=== PATIENT | male | born 1960 | race Caucasian/White ===

== ENCOUNTER 2018-03-19 11:43 | Inpatient (IN) ==
[2018-03-19] MEDS ORDERED: HYDROmorphone PF Inj 2 MG/ML Vial IV.PUSH ONE (11:53)
--- NOTE | 2018-03-19 11:56 | ED ---
HPI General Chief Complaint: Abdominal Pain Stated Complaint: Medical Time Seen by Provider: 03/19/18 11:53 Source: patient, family and EMS Mode of arrival: EMS Limitations: no limitations History of Present Illness HPI narrative: 57-year-old male patient with history of left inguinal hernia, seen several days ago for similar symptoms, but it was reducible, states that it has been going in and out and about 40 minutes prior to arrival started having severe pain in the left inguinal area, and is not going away, currently a 10 out of 10. EMS has given the patient 6 mg of morphine without significant relief. Patient states that he does not feel like he has anything to throw up, but has not vomited. He denies other issues. Related Data Home Medications Medication Instructions Recorded Confirmed No Known Home Medications 03/14/18 03/14/18 Previous Rx's Medication Instructions Recorded hydrocodone-acetaminophen 1 tab PO Q6H PRN #14 tab 03/15/18 ondansetron HCl [Zofran] 4 mg PO Q8H 5 Days #15 tab 03/15/18 Allergies Allergy/AdvReac Type Severity Reaction Status Date / Time amoxicillin Allergy Severe Rash, Verified 03/14/18 21:31 throat tightness tetanus toxoid, adsorbed Allergy Severe Chest Pain Verified 03/14/18 21:31 nitroglycerin AdvReac Severe Bradycardia Verified 03/14/18 21:31 Review of Systems ROS: all other systems reviewed are negative PMFSH History History Provided By: Patient Medical History Medical History Inguinal hernia (Acute) History of ankle fracture (Acute) Hx of gastroesophageal reflux (GERD) (Acute) Hx of renal failure (Acute) Surgical History Surgical History Hx of appendectomy (Acute) Hx of cholecystectomy (Acute) Social History Social History Substance History: Active Abuse Second Hand Smoke Exposure: No Smoking Status: Never smoker How Often Do You Have a Drink Containing Alcohol: 2 to 4 times a month Recent Travel in [facility] within the Last 8 Weeks: No Recent Out of Country Travel within the Last 8 Weeks: No Exam Narrative Exam Narrative: GENERAL: Well-developed middle-age male patient currently in moderate distress. Awake and oriented 3. SKIN: Focused skin assessment warm/dry. HEAD: Atraumatic. Normocephalic. EYES: Pupils equal and round. No scleral icterus. No injection or drainage. ENT: No nasal bleeding or discharge. Mucous membranes pink and moist. NECK: Trachea midline. No JVD. CARDIOVASCULAR: Regular rate and rhythm. No murmur appreciated. RESPIRATORY: No accessory muscle use. Clear to auscultation. Breath sounds equal bilaterally. GASTROINTESTINAL: Abdomen soft, non-tender, nondistended. Hepatic and splenic margins not palpable. There is a palpable left inguinal hernia that is fairly tender to palpation, ice back in place. MUSCULOSKELETAL: No obvious deformities. No clubbing. No cyanosis. No edema. NEUROLOGICAL: Awake and alert. No obvious cranial nerve deficits. Motor grossly within normal limits. Normal speech. PSYCHIATRIC: Appropriate mood and affect; insight and judgment normal. Course Initial Documented Vital Signs Pulse Rate 95 H 03/19/18 11:53 Respiratory Rate 18 03/19/18 11:53 Blood Pressure 149/98 H 03/19/18 11:53 Pulse Oximetry 95 03/19/18 11:53 Last Documented Vital Signs Pulse Rate 111 H 03/19/18 11:58 Respiratory Rate 18 03/19/18 11:58 Blood Pressure 149/98 H 03/19/18 11:58 Pulse Oximetry 95 03/19/18 11:58 Medical Decision Making MDM Narrative Medical decision making narrative: I was not able to reduce the left inguinal hernia in the ER, and I have discussed the case with Dr. Chanel who wanted lab work and CAT scan to be done, wants me to admit the patient medically. CAT scan is showing incarceration of the left inguinal hernia and the case was discussed with Dr. Chanel who is planning to take him to the OR. Case was then discussed with Dr. Cota for admission. Medical Screen Exam Complete: Yes Emergency Medical Condition: Yes Differential Diagnosis Differential Diagnosis: Left inguinal hernia: Reducible versus incarcerated Lab Data Lab results reviewed: Yes I reviewed the patient's lab results. Result diagrams: 03/19/18 12:58 03/19/18 12:58 Lab Results 03/19/18 03/19/18 Range/Units 12:58 12:58 WBC 9.2 (4.0-11.0) th/mm3 RBC 5.26 (4.50-5.90) mil/mm3 Hgb 16.6 (13.0-17.0) gm/dL Hct 47.6 (39.0-51.0) % MCV 90.4 (80.0-100.0) fL MCH 31.5 (27.0-34.0) pg MCHC 34.9 (32.0-36.0) % RDW 13.5 (11.6-17.2) % Plt Count 325 (150-450) th/mm3 MPV 8.6 (7.0-11.0) fL Neut % (Auto) 71.8 H (16.0-70.0) % Lymph % (Auto) 15.3 (9.0-44.0) % [place] % (Auto) 10.3 H (0.0-8.0) % Eos % (Auto) 1.2 (0.0-4.0) % Baso % (Auto) 1.4 (0.0-2.0) % Neut # (Auto) 6.6 (1.8-7.7) th/mm3 Lymph # (Auto) 1.4 (1.0-4.8) th/mm3 [place] # (Auto) 1.0 H (0.0-0.9) th/mm3 Eos # (Auto) 0.1 (0.0-0.4) th/mm3 Baso # (Auto) 0.1 (0.0-0.2) th/mm3 WBC Differential . Differential Comment Auto diff final Sodium 141 (136-145) meq/L Potassium 4.0 (3.5-5.1) meq/L Chloride 107 (98-107) meq/L Carbon Dioxide 25.6 (21.0-32.0) meq/L Anion Gap 8 (5-15) meq/L BUN 14 (7-18) mg/dL Creatinine 1.44 H (0.60-1.30) mg/dL Estimated GFR 50 L (>89) mL/min Random Glucose 121 H (74-106) mg/dL Calcium 8.3 L (8.5-10.1) mg/dL Total Bilirubin 0.7 (0.2-1.0) mg/dL AST 29 (15-37) U/L ALT 55 (12-78) U/L Alkaline Phosphatase 63 (45-117) U/L Total Protein 7.4 (6.4-8.2) g/dL Albumin 3.9 (3.4-5.0) g/dL Imaging Data Attestation: I personally reviewed and interpreted this imaging study as follows : Radiologist's impression: Abdomen/Pelvis CT 03/19/18 12:40 CONCLUSION: 1. Probable incarcerated left inguinal hernia. Correlation suggested. 2. Moderate fatty replacement to the liver. Discharge Plan Discharge Disposition Patient Disposition: 30 Still Patient Discharge Condition Condition: Stable Discharge Details Anticipated Discharge Date: 03/19/18 Diagnosis: Incarcerated hernia Physicians Team ED Provider: Junito Mccullough Primary Care Provider: Primary Care Jasmyne Luke Rxs /Orders / Referrals /Forms Prescriptions: No Action No Known Home Medications RF: 0 hydrocodone-acetaminophen 5-300 mg tablet 1 tab PO Q6H PRN (Reason: pain) Qty: 14 RF: 0 ondansetron HCl [Zofran] 4 mg tablet 4 mg PO Q8H 5 Days Qty: 15 RF: 0 Discharge Instructions Patient Printed Instructions: Inguinal Hernia Repair (DC) Discharge Interventions Interventions: Vital Signs Last Done: 03/19/18 11:58 Status ED Status: With Doctor
[2018-03-19] MEDS ORDERED: Sod Chloride 0.9% Inj 1,000 ML IV.SIG SCH (13:00)
[2018-03-19 13:36] LABS: Baso # (Auto) 0.1 th/mm3 (0.0-0.2); Baso % (Auto) 1.4 % (0.0-2.0); Eos # (Auto) 0.1 th/mm3 (0.0-0.4); Eos % (Auto) 1.2 % (0.0-4.0); Hematocrit 47.6 % (39.0-51.0); Hemoglobin 16.6 gm/dL (13.0-17.0); Lymph # (Auto) 1.4 th/mm3 (1.0-4.8); Lymph % (Auto) 15.3 % (9.0-44.0); Mean Corpuscular HGB Conc 34.9 % (32.0-36.0); Mean Corpuscular Hemoglobin 31.5 pg (27.0-34.0); Mean Corpuscular Volume 90.4 fL (80.0-100.0); Mean Platelet Volume 8.6 fL (7.0-11.0); Mono % (Auto) 10.3 % (0.0-8.0); Neut # (Auto) 6.6 th/mm3 (1.8-7.7); Neut % (Auto) 71.8 % (16.0-70.0); Platelet Count 325 th/mm3 (150-450); Red Blood Count 5.26 mil/mm3 (4.50-5.90); Red Cell Distribution Width 13.5 % (11.6-17.2); White Blood Count 9.2 th/mm3 (4.0-11.0)
[2018-03-19 13:52] LABS: Alanine Aminotransferase 55 U/L (12-78); Albumin 3.9 g/dL (3.4-5.0); Anion Gap 8 meq/L (5-15); Aspartate Aminotransferase 29 U/L (15-37); Blood Urea Nitrogen 14 mg/dL (7-18); Calcium 8.3 mg/dL (8.5-10.1); Carbon Dioxide 25.6 meq/L (21.0-32.0); Chloride 107 meq/L (98-107); Glomerular Filtration Rate 50 mL/min (>89); Glucose,Random 121 mg/dL (74-106); Sodium 141 meq/L (136-145)
[2018-03-19 13:55] LABS: Alkaline Phosphatase 63 U/L (45-117); Total Protein 7.4 g/dL (6.4-8.2)
--- NOTE | 2018-03-19 15:02 | CT ---
EXAM DATE: 03/19/2018 2:53 PM EDT AGE/SEX: 57 years / Male INDICATIONS: Left lower abdomen pain for one week. CLINICAL DATA: This is the patient's initial encounter. Patient reports that signs and symptoms have been present for 1 week and indicates a pain score of 8/10. MEDICAL/SURGICAL HISTORY: Gastroesophageal reflux disease. inguinal hernia Appendectomy. Chol ecystectomy. ORAL CONTRAST: No oral contrast ingested. RADIATION DOSE: 7.6 CTDI (mGy) COMPARISON: No prior exams available for comparison. TECHNIQUE: Multiple contiguous axial images were obtained through the abdomen and pelvis following b olus infusion of 90 ml Omnipaque 350 (iohexol) nonionic water-soluble contrast as a single exam dos e. No oral contrast ingested. Using automated exposure control and adjustment of the mA and/or kV ac cording to patient size, radiation dose was kept as low as reasonably achievable to obtain optimal di agnostic quality images. DICOM format image data is available electronically for review and comparis on. FINDINGS: Lower Lungs: The visualized lower lungs are clear. Liver: Mild fatty replacement to the liver. Spleen: Homogeneous density without enlargement. Pancreas: Unremarkable without mass or calcification. Kidneys: Normal in size and shape. No evidence of mass or hydronephrosis. Adrenal Glands: Unremarkable. Aorta: The aorta and proximal iliac vessels are grossly unremarkable without aneurysmal dilation. Bowel/Mesentery: There are multiple diverticuli in the sigmoid colon with some bowel wall thickening without inflammatory changes to suggest diverticulitis. There is a left inguinal hernia containing b owel with some induration suggesting incarceration. Abdominal Wall: Left inguinal hernia Retroperitoneum: No evidence of adenopathy in the retrocrural, para-aortic, or deep pelvic regions. Bladder: Contours are smooth. Reproductive Organs: No abnormal masses or calcifications seen. Inguinal: The inguinal region is unremarkable without evidence of adenopathy. Bony Structures: Unremarkable. CONCLUSION: 1. Probable incarcerated left inguinal hernia. Correlation suggested. 2. Moderate fatty replacement to the liver. Electronically signed by: Trace Forbes MD 03/19/2018 3:01 PM EDT
[2018-03-19] MEDS ORDERED: Bisacodyl 10 MG Supp RECTAL PRN (15:58)
[2018-03-19] MEDS ORDERED: Acetaminophen 325 MG Tablet PO PRN (15:58)
[2018-03-19] MEDS ORDERED: Morphine Inj 4 MG/ML Vial IV.PUSH PRN ×2 (16:06)
[2018-03-19] MEDS ORDERED: Naloxone Inj 0.4 MG/ML Vial IV.PUSH PRN (16:06)
[2018-03-19] MEDS ORDERED: Morphine Sulfate Inj 2 MG/ML Vial IV.PUSH PRN (16:06)
[2018-03-19] MEDS: Sod Chloride 0.9% Inj 1,000 ML IV.CONT SCH (16:08)
--- NOTE | 2018-03-19 16:27 | XR ---
EXAM DATE: 03/19/2018 4:23 PM EDT AGE/SEX: 57 years / Male INDICATIONS: Cough. CLINICAL DATA: This is the patient's initial encounter. Patient reports that signs and symptoms have been present for 1 day and indicates a pain score of 0/10. MEDICAL/SURGICAL HISTORY: None. None. COMPARISON: [facility] [place], CHEST SINGLE AP, 04/19/2016. . FINDINGS: A single AP view of the chest demonstrates the lungs to be symmetrically aerated without evidence of mass, infiltrate or effusion. The cardiomediastinal contours are unremarkable. Osseous structures a re intact. CONCLUSION: Negative for acute process Electronically signed by: Trace Forbes MD 03/19/2018 4:26 PM EDT
[2018-03-19 17:16] LABS: Bilirubin,Urine Negative (Negative); Clarity,Urine Clear (Clear); Color,Urine Yellow (Yellw/Straw); Glucose,Urine (UA) Negative (Negative); Leukocyte Esterase,Urine Negative (Negative); Mucus,Urine Few /lpf (Occasional); Nitrite,Urine Negative (Negative); Specific Gravity,Urine 1.046 (1.002-1.035)
[2018-03-19] MEDS ORDERED: Famotidine PF Inj 20 MG/2 ML Vial ONE (18:00)
[2018-03-19] MEDS ORDERED: Esmolol Bolus Inj 100 MG/10 ML Vial IV.PUSH ONE (18:09)
[2018-03-19] MEDS ORDERED: Neostigmine Inj 5 MG/5 ML Syringe IV.PUSH ONE (18:09)
[2018-03-19] MEDS ORDERED: Glycopyrrolate Inj 1 MG/5 ML Syringe IV.PUSH ONE (18:09)
[2018-03-19] MEDS ORDERED: Metoprolol Inj 5 MG/5 ML Vial IV.PUSH ONE (18:09)
[2018-03-19] MEDS ORDERED: Lidocaine PF 1% Inj 5 ML Syringe INFILTRATN ONE (18:09)
[2018-03-19] MEDS ORDERED: Labetalol HCl Inj 100 MG/20 ML Vial IV.CONT ONE (18:09)
[2018-03-19] MEDS ORDERED: Succinylcholine Inj 100 MG/5 ML Syringe IV.PUSH ONE (18:09)
[2018-03-19] MEDS ORDERED: Bupivacaine/Epinephrine Inj 0.25% 50 ML Vial ONE (18:18)
--- NOTE | 2018-03-19 18:30 | P.OP ---
- Preoperative Diagnosis (1) Incarcerated hernia - Postoperative Diagnosis (1) Incarcerated hernia Date of procedure: 03/19/18 Procedure: open l inguinal hernia repair Anesthesia: GETA Surgeon: Kanu Chanel MD Pathology: none sent Operation and Findings: incarcerated left hernia inguinal
[2018-03-19] MEDS ORDERED: fentaNYL Citrate Inj 100 MCG/2 ML Ampul ONE (19:14)
[2018-03-19] MEDS ORDERED: *Meperidine Inj 25 MG/ML Vial PERIprocedural Use ONLY ONE (19:56)
--- NOTE | 2018-03-19 21:35 | P.HPIM ---
History of Present Illness Primary Care Physician: No Primary Care Physician History of Present Illness: 57 y/o male with a history of ckd presented to the ED with complaints of severe abdominal pain. Patient states prior to coming in he had severe abdominal pain, 10/10, constant with no radiation or associated symptoms. On arrival patient was found to have an incarcerated inguinal hernia and was taken to OR. Patient was seen s/p hernia repair. He currently denies any pain. He states he will try eating in the morning and take liquids tonight. Denies any chest pain, sob, fever or chills. Inpatient Certification: I certify that the inpatient services were ordered in accordance with Medicare regulations governing the order. This includes certification that hospital inpatient services are reasonable and necessary and in the case of services not specified as inpatient-only under 42 CFR 419.22(n), that they are appropriately provided as inpatient services in accordance to with the 2-midnight benchmark under 43 CFR 412.3(e) Estimated Total Length of Stay (Days): 2 Plans for Post Hospital Care: Not yet determined Review of Systems All other systems reviewed negative except as stated in HPI [facility] - History History Provided By: Patient - Medical History Medical History: Medical History (Last Reviewed 03/19/18 @ 22:59 by LESLI Tracy) CKD (chronic kidney disease) Inguinal hernia History of ankle fracture Hx of gastroesophageal reflux (GERD) - Surgical History Surgical History: Surgical History (Last Reviewed 03/19/18 @ 22:59 by LESLI Tracy) Hx of appendectomy Hx of cholecystectomy - Family History Family History: Family History (Last Reviewed 03/19/18 @ 22:59 by LESLI Tracy) Other Family history normal - Tobacco History Second Hand Smoke Exposure: No Tobacco Use In Past 30 Days: No Smoking Status: Never smoker - Alcohol History How Often Do You Have a Drink Containing Alcohol: 2 to 4 times a month - Substance Use History Substance History: Active Abuse - Substance Use Type Marijuana Status: Active Route Used: Inhalation Last Used: every so often - Travel History Recent Travel in the [place] Within the Last 8 Weeks: No Recent Travel Out of the Country Within the Last 8 Weeks: No - Immunization History Tetanus Immunization: Never Vaccinated Hx Influenza Vaccine This Season: Yes Medications and Allergies Active Medications: Active Medications Acetaminophen (Tylenol) 650 mg PO Q4H PRN PRN Reason: Temp > 100.4 Al Hydroxide/Mg Hydroxide (Milk Of Magnesia Liq) 30 ml PO Q12H PRN PRN Reason: Mild Constipation Bisacodyl (Dulcolax Supp) 10 mg RECTAL DAILY PRN PRN Reason: SEVERE CONSITIPATION Sodium Chloride (Ns Inj) 1,000 mls @ 0 mls/hr IV.SIG BOLUS SHIRLEY Sodium Chloride (Ns Inj) 1,000 mls @ 100 mls/hr IV.CONT .Q10H [facility] Last Admin: 03/19/18 16:08 Dose: 100 mls/hr Lactulose (Lactulose Liq) 30 ml PO DAILY PRN PRN Reason: SEVERE CONSITIPATION Miscellaneous Information (Mis Nursing Information) 0 each OTHER UNSCH PRN PRN Reason: SEE LABEL COMMENTS Stop: 03/20/18 19:49 Morphine Sulfate (Morphine Inj) 4 mg IV.PUSH Q3H PRN PRN Reason: PAIN 6-10;IF UNABLE TO TAKE PO Morphine Sulfate (Morphine Inj) 4 mg IV.PUSH Q3H PRN PRN Reason: BREAKTHROUGH PAIN Morphine Sulfate (Morphine Inj) 2 mg IV.PUSH Q3H PRN PRN Reason: PAIN 3-5; IF UABLE TO TAKE PO Naloxone HCl (Narcan Inj) 0.4 mg IV.PUSH UNSCH PRN PRN Reason: SEE LABEL COMMENTS Ondansetron HCl (Zofran Inj) 4 mg IV.PUSH Q6H PRN PRN Reason: NAUSEA OR VOMITING Oxycodone HCl (Roxicodone) 5 mg PO Q4H PRN PRN Reason: PAIN SCALE 3 TO 5 Oxycodone HCl (Roxicodone) 10 mg PO Q4H PRN PRN Reason: PAIN SCALE 6 TO 10 Senna/Docusate Sodium ([place]ace) 1 tab PO BID SHIRLEY Sennosides (Senokot) 17.2 mg PO Q12H PRN PRN Reason: Moderate Constipation Allergies Allergy/AdvReac Type Severity Reaction Status Date / Time amoxicillin Allergy Severe Rash, Verified 03/14/18 21:31 throat tightness tetanus toxoid, adsorbed Allergy Severe Chest Pain Verified 03/14/18 21:31 nitroglycerin AdvReac Severe Bradycardia Verified 03/14/18 21:31 Home Medications Medication Instructions Recorded Confirmed Type No Known Home Medications 03/14/18 03/14/18 History Exam Vital signs: Vital Signs 03/19/18 11:53 03/19/18 11:58 03/19/18 16:08 Temperature Pulse Rate 95 H 111 H 65 Respiratory Rate 18 18 18 Blood Pressure 149/98 H 149/98 H 169/94 H Pulse Oximetry 95 95 98 03/19/18 17:18 03/19/18 19:49 03/19/18 20:00 Temperature 97.5 F L 98.0 F 98.0 F Pulse Rate 77 86 60 Respiratory Rate 18 16 16 Blood Pressure 187/97 H 181/102 H 140/78 Pulse Oximetry 95 98 93 L 03/19/18 20:15 03/19/18 20:33 03/19/18 20:38 Temperature 98.0 F 98.0 F 98.2 F Pulse Rate 58 L 58 L 59 L Respiratory Rate 16 14 16 Blood Pressure 135/72 135/72 157/88 H Pulse Oximetry 95 98 94 L Intake & Output 03/19/18 03/19/18 03/20/18 06:59 18:59 06:59 Intake Total 1500 / 1500 Output Total / Balance 1495 / 1495 Weight 77.6 kg Intake: Anesthesia Amount 1500 / 1500 Output: Estimated Blood Loss Narrative: GENERAL: This is a well-nourished, well-developed patient, in no apparent distress. SKIN: Left groin dressing dry and intact CARDIOVASCULAR: Regular rate and rhythm without murmurs, gallops, or rubs. RESPIRATORY: Clear to auscultation. Breath sounds equal bilaterally. No wheezes , rales, or rhonchi. GASTROINTESTINAL: Abdomen soft, non-tender, nondistended. Normal active bowel sounds MUSCULOSKELETAL: Extremities without clubbing, cyanosis, or edema. NEURO: Alert & Oriented x4 to person, place, time, situation. Moves all ext x4 Results - Labs CBC & Chem 7: 03/19/18 12:58 03/19/18 12:58 Labs: Short CBC 03/19/18 Range/Units 12:58 WBC 9.2 (4.0-11.0) th/mm3 Hgb 16.6 (13.0-17.0) gm/dL Hct 47.6 (39.0-51.0) % Plt Count 325 (150-450) th/mm3 BMP 03/19/18 12:58 Sodium 141 Potassium 4.0 Chloride 107 Carbon Dioxide 25.6 BUN 14 Creatinine 1.44 H Calcium 8.3 L Liver Function 03/19/18 Range/Units 12:58 Total Bilirubin 0.7 (0.2-1.0) mg/dL AST 29 (15-37) U/L ALT 55 (12-78) U/L Alkaline Phosphatase 63 (45-117) U/L Albumin 3.9 (3.4-5.0) g/dL Urine 03/19/18 Range/Units 16:36 Urine Color Yellow (Yellw/Straw) Urine Clarity Clear (Clear) Urine pH 5.0 (5.0-8.5) Ur Specific [place] 1.046 H (1.002-1.035) Urine Protein Negative (Neg-Trace) mg/dL Urine Glucose (UA) Negative (Negative) mg/dL - Imaging Impressions Chest X-Ray 03/19/18 00:00 CONCLUSION: Negative for acute process Abdomen/Pelvis CT 03/19/18 12:40 CONCLUSION: 1. Probable incarcerated left inguinal hernia. Correlation suggested. 2. Moderate fatty replacement to the liver. Caprini VTE Risk Assessment Caprini VTE Risk Assessment: No/Low Risk (score <= 1) Caprini Risk Assessment Model: Point Value = 1 Point Value = 2 Point Value = 3 Point Value = 5 Age 41-60 Minor surgery BMI > 25 kg/m2 Swollen legs Varicose veins or History of unexplained or recurrent spontaneous Oral contraceptives or hormone replacement Sepsis (< 1 month) Serious lung disease, including pneumonia (< 1 month) Abnormal pulmonary function Acute myocardial infarction Congestive heart failure (< 1 month) History of inflammatory bowel disease Medical patient at bed rest Age 61-74 Arthroscopic surgery Major open surgery (> 45 min) Laparoscopic surgery (> 45 min) Malignancy Confined to bed (> 72 hours) Immobilizing plaster cast Central venous access Age >= 75 History of VTE Family history of VTE Factor V Leiden Prothrombin [id number] Lupus anticoagulant Anticardiolipin antibodies Elevated serum homocysteine Heparin-induced thrombocytopenia Other congenital or acquired thrombophilia Stroke (< 1 month) Elective arthroplasty Hip, pelvis, or leg fracture Acute spinal cord injury (< 1 month) Prophylaxis Regimen: Total Risk Factor Score Risk Level Prophylaxis Regimen 0-1 Low Early ambulation 2 Moderate Order ONE of the following: *Sequential Compression Device (SCD) *Heparin 5000 units SQ BID 3-4 Higher Order ONE of the following medications: *Heparin 5000 units SQ TID *Enoxaparin/Lovenox 40 mg SQ daily (WT < 150 kg, CrCl > 30 mL/min) *Enoxaparin/Lovenox 30 mg SQ daily (WT < 150 kg, CrCl > 10-29 mL/min) *Enoxaparin/Lovenox 30 mg SQ BID (WT < 150 kg, CrCl > 30 mL/min) AND/OR *Sequential Compression Device (SCD) 5 or more Highest Order ONE of the following medications: *Heparin 5000 units SQ TID (Preferred with Epidurals) *Enoxaparin/Lovenox 40 mg SQ daily (WT < 150 kg, CrCl > 30 mL/min) *Enoxaparin/Lovenox 30 mg SQ daily (WT < 150 kg, CrCl > 10-29 mL/min) *Enoxaparin/Lovenox 30 mg SQ BID (WT < 150 kg, CrCl > 30 mL/min) AND *Sequential Compression Device (SCD) Assessment and Plan - Plan 57 y/o male with a history of ckd presented to the ED with complaints of severe abdominal pain. Incarcerated hernia Abdominal CT reviewed and shows a Probable incarcerated left inguinal hernia -General surgery consulted, took patient for an open inguinal hernia repair -Pain management with IV morphine -Resume regular diet after surgery CKD, creatine 1.4, at baseline -avoid nephrotoxins -Patient should follow up out patient with nephrology -Labs in am DVT prophylaxis: SCDs Discussed Condition With: Patient and rN
[2018-03-19] MEDS: Senna/Docusate Sodium 8.6/50 MG Tablet PO SCH (21:41)
[2018-03-20] MEDS: Sod Chloride 0.9% Inj 1,000 ML IV.CONT SCH ×2 (04:36→11:56)
--- NOTE | 2018-03-20 04:56 | MP ---
cc: Kanu Chanel MD DATE OF OPERATION: 03/19/2018 PREOPERATIVE DIAGNOSIS: Incarcerated left inguinal hernia. POSTOPERATIVE DIAGNOSIS: Incarcerated left inguinal hernia. PROCEDURE PERFORMED: Open left inguinal hernia repair with mesh. SURGEON: Kanu Chanel MD CHEMICAL PLANT OPERATOR SUPERVISOR: Shayan Johnson MD ANESTHESIA: GETA. IV FLUIDS: See anesthesia sheet. ESTIMATED BLOOD LOSS: 5 mL. DRAINS: None. WOUND CLASSIFICATION: Clean. COMPLICATIONS: None. FINDINGS: Moderate-sized incarcerated indirect left inguinal hernia fully reduced. Colon viable. No evidence of compromise. INDICATIONS: The patient is a 57-year-old male who presents with acute onset of left inguinal groin pain. It has been going on for several months. He had a further workup including CT scan findings of colon incarceration and inguinal hernia. A decision for operative intervention. DETAILS OF PROCEDURE: The patient was taken to the operating suite and placed in the supine position. He was prepped and draped in the usual sterile fashion after induction of general endotracheal anesthesia. Brief timeout done stating correct patient, procedure and surgical site, and all were in agreement with this. Attention was directed to the left groin area where a local anesthetic was injected. A transverse incision was made approximately 4.5 cm. This was done with a 15 blade. Further dissection down with electric Bovie electrocautery, down through Keri's fascia, down to the external oblique. Kittner used to clear the fibers of the external oblique. A small allyson incision was made in the direction of the fibers. Metzenbaum scissors were used to expose the external ring and transect. They were done both proximally and distally. The ilioinguinal nerve was identified and protected. The cord and moderate-sized hernia were noted. The cord and hernia were mobilized together and a [place] drain placed posterior to this to mobilize the cord structures. The tubercle was also identified. This hernia was noted to be a moderate-sized indirect left inguinal hernia. The sac was mobilized from the cord structures. Vas was identified and protected. The hernia sac was opened. Evidence of colon was inside the hernia sac. This was reduced back into the abdomen. Hernia sac was ligated high and this was done with 0 Vicryl. The 3 x 6 Atrium mesh was identified and cut curvilinear to size. This was placed to recreate the inguinal floor. The inguinal floor was noted to be somewhat weak and 0 Ethibond sutures were used in interrupted fashion to place on pubic tubercle and medially conjoined tendon to affix the mesh and the mesh was also affixed laterally to the Zi's ligament and the shelving edge. The 2 leaflets that were cut to create the internal ring were also done and this was wrapped around the cord structures. The 2 leaflets crisscrossed laterally and a suture was placed to reapproximate and recreate the inguinal ring. Local anesthetic was injected. The external oblique was then closed with 3-0 Vicryl. The Keri's was closed with 3-0 Vicryl as well. Incision closed in layers. Local anesthetic injected, 4-0 Monocryl used for subcuticular suture. Sterile dressings including Steri-Strips and Mastisol were placed. The patient tolerated the procedure well. There were no intraoperative complications. All lap and instrument counts were correct at the end of the procedure. The testicle was reduced and palpated in the scrotal sac. No complications. The patient was extubated and taken stable to the PACU. MD ROBERTA Adams/chip , 09:16 PM , 09:26 PM
[2018-03-20 06:31] LABS: Baso % (Auto) 0.2 % (0.0-2.0); Hematocrit 43.2 % (39.0-51.0); Hemoglobin 14.7 gm/dL (13.0-17.0); Lymph # (Auto) 0.8 th/mm3 (1.0-4.8); Lymph % (Auto) 4.1 % (9.0-44.0); Mean Corpuscular HGB Conc 34.1 % (32.0-36.0); Mean Corpuscular Hemoglobin 30.7 pg (27.0-34.0); Mean Corpuscular Volume 89.8 fL (80.0-100.0); Mean Platelet Volume 8.4 fL (7.0-11.0); Mono # (Auto) 1.1 th/mm3 (0.0-0.9); Mono % (Auto) 5.8 % (0.0-8.0); Neut % (Auto) 89.9 % (16.0-70.0); Platelet Count 301 th/mm3 (150-450); Red Blood Count 4.81 mil/mm3 (4.50-5.90); Red Cell Distribution Width 13.8 % (11.6-17.2); White Blood Count 18.9 th/mm3 (4.0-11.0)
[2018-03-20 06:35] LABS: INR 1.1 Ratio
--- NOTE | 2018-03-20 06:47 | MB ---
cc: Kanu Chanel MD DATE: 03/19/2018 CHIEF COMPLAINT: Left inguinal hernia pain, inguinal hernia. CONSULTATION from [facility] HISTORY OF PRESENT ILLNESS: The patient is a 57-year-old male who presents with left groin pain. The patient states he has had the hernia approximately 8 months and states that the pain has been off and on. He noted last week he came in with acute onset of groin pain and was discharged from the emergency department. He returns with worsening similar complaints and noted to have incarcerated inguinal hernia with colon present. He states his pain is 10/10. He has associated nausea. Denies significant vomiting. Denies fevers or chills. He states the hernia was unable to be reduced. Attempt at reduction in the ER without success. Therefore, Surgery was consulted for further evaluation. PAST MEDICAL HISTORY: Inguinal hernia, ankle fracture, reflux, renal failure, lupus, hypertension. PAST SURGICAL HISTORY: Cholecystectomy, appendectomy, right lower extremity ORIF. ALLERGIES: AMOXICILLIN, TETANUS, NITROGLYCERIN, SLO-BID. MEDICATIONS: See EMR. SOCIAL HISTORY: Positive smoking, occasional etoh, denies ivda FAMILY HISTORY: Denies diabetes or hypertension. REVIEW OF SYSTEMS: GENERAL: Denies fevers, chills. HEENT: Denies eye pain, ear pain. NECK: Denies swelling or pain. LUNGS: Denies cough or wheeze. HEART: Denies palpitations or chest pain. ABDOMEN: Denies vomiting. Complains of nausea and groin pain, hernia. GENITOURINARY: Denies dysuria or hematuria. ENDOCRINE: Denies polyuria or polydipsia. INTEGUMENT: Denies any mass or lesions: PSYCHIATRIC: Denies any change in mood or sensorium. PHYSICAL EXAMINATION: GENERAL: The patient in no acute distress. VITAL SIGNS: Temperature 98.2, pulse 95, respirations 18, blood pressure 149/98, saturation 95%. HEENT: Pupils equal, round, reactive. NECK: Supple. Trachea midline. LUNGS: Clear to auscultation, bilateral expansion. HEART: S1, S2. Regular rhythm. ABDOMEN: Soft. GROIN: Positive palpable inguinal hernia on the left. Nonreducible, tenderness to palpation. No erythema. EXTREMITIES: Warm and well perfused. NEUROLOGIC: GCS 15, 5/5 motor in all extremities. LABORATORY AND DIAGNOSTIC DATA: WBC 9.2, hemoglobin 16.6, hematocrit 47.6, platelets 325. Sodium 141, potassium 4, chloride 107, BUN 14, creatinine 1.4, glucose 121, total bilirubin 0.7, AST 29, ALT 55, alkaline phosphatase 63. CT is reviewed by myself showing incarcerated left inguinal hernia, diverticula sigmoid colon. Bowel with some induration, concern for incarceration. ASSESSMENT: The patient is a 57-year-old male, left inguinal hernia, acute incarceration. PLAN: Operative intervention. Will take the patient to the OR for open left inguinal hernia repair. Discussed with the patient in detail. He states understanding and agrees and would like to proceed. Patient needs to be NPO, IVF, pain control. MD ROBERTA Adams/alicia/nanette , 09:49 PM , 09:57 PM ALEXA
[2018-03-20 06:58] LABS: Alanine Aminotransferase 47 U/L (12-78); Albumin 3.4 g/dL (3.4-5.0); Anion Gap 7 meq/L (5-15); Aspartate Aminotransferase 24 U/L (15-37); Blood Urea Nitrogen 13 mg/dL (7-18); Calcium 7.9 mg/dL (8.5-10.1); Carbon Dioxide 27.2 meq/L (21.0-32.0); Chloride 107 meq/L (98-107); Glomerular Filtration Rate 53 mL/min (>89); Glucose,Random 123 mg/dL (74-106); Potassium 4.4 meq/L (3.5-5.1); Sodium 141 meq/L (136-145)
[2018-03-20 07:01] LABS: Alkaline Phosphatase 60 U/L (45-117); Total Protein 6.6 g/dL (6.4-8.2)
[2018-03-20] MEDS: Senna/Docusate Sodium 8.6/50 MG Tablet PO SCH (08:53)
--- NOTE | 2018-03-20 11:04 | P.PNGS ---
Subjective Patient reports: no new complaints, feels better, pain is less, tolerating liquids well Physical Exam Vital signs: Vital Signs 03/19/18 11:53 03/19/18 11:58 03/19/18 16:08 Temperature Pulse Rate 95 H 111 H 65 Respiratory Rate 18 18 18 Blood Pressure 149/98 H 149/98 H 169/94 H Pulse Oximetry 95 95 98 03/19/18 17:18 03/19/18 19:49 03/19/18 20:00 Temperature 97.5 F L 98.0 F 98.0 F Pulse Rate 77 86 60 Respiratory Rate 18 16 16 Blood Pressure 187/97 H 181/102 H 140/78 Pulse Oximetry 95 98 93 L 03/19/18 20:15 03/19/18 20:33 03/19/18 20:38 Temperature 98.0 F 98.0 F 98.2 F Pulse Rate 58 L 58 L 59 L Respiratory Rate 16 14 16 Blood Pressure 135/72 135/72 157/88 H Pulse Oximetry 95 98 94 L 03/20/18 00:20 03/20/18 04:30 03/20/18 08:00 Temperature 98.1 F 98.3 F 96.7 F L Pulse Rate 58 L 52 L 76 Respiratory Rate 17 17 17 Blood Pressure 147/86 H 124/73 128/73 Pulse Oximetry 97 96 94 L 03/20/18 10:35 Temperature Pulse Rate Respiratory Rate Blood Pressure Pulse Oximetry 95 Intake & Output 03/19/18 03/20/18 03/20/18 18:59 06:59 18:59 Intake Total 2740 / 2740 Output Total 605 / 605 Balance 2135 / 2135 Weight 77.6 kg 80 kg Intake: IV 1000 / 1000 NS Inj 1,000 ML @ 100 mls/hr IV 1000 / 1000 .CONT .Q10H [facility] Rx#:[id number] Oral 240 / 240 Anesthesia Amount 1500 / 1500 Output: Urine 600 / 600 Estimated Blood Loss 5 / 5 - Routine Abdominal Exam Present: soft (left groin incisions c/d/i) Assessment and Plan - Plan POD 1 open left inguinal hernia, doing well PLAN Reg diet oob pain control ok to d/c home
--- NOTE | 2018-03-20 12:45 | P.PN ---
Subjective Interval history: F/U Inguinal hernia repair. Doing ok minimal pain tolerating po. Counselled re narcs Physical Exam Vital signs: Vital Signs 03/19/18 16:08 03/19/18 17:18 03/19/18 19:49 Temperature 97.5 F L 98.0 F Pulse Rate 65 77 86 Respiratory Rate 18 18 16 Blood Pressure 169/94 H 187/97 H 181/102 H Pulse Oximetry 98 95 98 03/19/18 20:00 03/19/18 20:15 03/19/18 20:33 Temperature 98.0 F 98.0 F 98.0 F Pulse Rate 60 58 L 58 L Respiratory Rate 16 16 14 Blood Pressure 140/78 135/72 135/72 Pulse Oximetry 93 L 95 98 03/19/18 20:38 03/20/18 00:20 03/20/18 04:30 Temperature 98.2 F 98.1 F 98.3 F Pulse Rate 59 L 58 L 52 L Respiratory Rate 16 17 17 Blood Pressure 157/88 H 147/86 H 124/73 Pulse Oximetry 94 L 97 96 03/20/18 08:00 03/20/18 10:35 Temperature 96.7 F L Pulse Rate 76 Respiratory Rate 17 Blood Pressure 128/73 Pulse Oximetry 94 L 95 Intake & Output 03/19/18 03/20/18 03/20/18 18:59 06:59 18:59 Intake Total 2740 / 2740 Output Total 605 / 605 Balance 2135 / 2135 Weight 77.6 kg 80 kg Intake: IV 1000 / 1000 NS Inj 1,000 ML @ 100 mls/hr IV 1000 / 1000 .CONT .Q10H [facility] Rx#:[id number] Oral 240 / 240 Anesthesia Amount 1500 / 1500 Output: Urine 600 / 600 Estimated Blood Loss 5 / 5 Other: Date of Last Bowel Movement 03/19/18 Narrative: GENERAL: Well-developed, well-nourished in no distress SKIN: Warm and dry. CARDIOVASCULAR: Regular rate and rhythm. RESPIRATORY: No accessory muscle use. Clear to auscultation. Breath sounds equal bilaterally. GASTROINTESTINAL: Abdomen soft, slight tenderness over operative site, nondistended. MUSCULOSKELETAL: Extremities without clubbing, cyanosis, or edema. No obvious deformities. NEUROLOGICAL: Awake and alert. No obvious cranial nerve deficits. Motor grossly within normal limits. Five out of 5 muscle strength in the arms and legs. Normal speech. PSYCHIATRIC: Appropriate mood and affect; insight and judgment normal. Results - Labs CBC & Chem 7: 03/20/18 06:08 03/20/18 06:08 Laboratory Results - last 24 hr 03/19/18 03/19/18 03/19/18 12:58 12:58 16:36 WBC 9.2 RBC 5.26 Hgb 16.6 Hct 47.6 MCV 90.4 MCH 31.5 MCHC 34.9 RDW 13.5 Plt Count 325 MPV 8.6 Neut % (Auto) 71.8 H Lymph % (Auto) 15.3 Mcdonough % (Auto) 10.3 H Eos % (Auto) 1.2 Baso % (Auto) 1.4 Neut # (Auto) 6.6 Lymph # (Auto) 1.4 Mcdonough # (Auto) 1.0 H Eos # (Auto) 0.1 Baso # (Auto) 0.1 WBC Differential . Differential Comment Auto diff final PT INR Sodium 141 Potassium 4.0 Chloride 107 Carbon Dioxide 25.6 Anion Gap 8 BUN 14 Creatinine 1.44 H Estimated GFR 50 L Random Glucose 121 H Calcium 8.3 L Total Bilirubin 0.7 AST 29 ALT 55 Alkaline Phosphatase 63 Total Protein 7.4 Albumin 3.9 Urine Color Yellow Urine Clarity Clear Urine pH 5.0 Ur Specific [place] 1.046 H Urine Protein Negative Urine Glucose (UA) Negative Urine Ketones 20 Urine Occult Blood Negative Urine Nitrate Negative Urine Bilirubin Negative Urine Urobilinogen Less than 2 Ur Leukocyte Esterase Negative Urine WBC Less than 1 Urine Mucus Few H Micro UA Comment Culture not ind Ur Microscopic Review Not Reportable Urine Culture Comments Culture not ind 03/20/18 03/20/18 03/20/18 06:08 06:08 06:08 WBC 18.9 H D RBC 4.81 Hgb 14.7 Hct 43.2 MCV 89.8 MCH 30.7 MCHC 34.1 RDW 13.8 Plt Count 301 MPV 8.4 Neut % (Auto) 89.9 H Lymph % (Auto) 4.1 L Mcdonough % (Auto) 5.8 Eos % (Auto) 0.0 Baso % (Auto) 0.2 Neut # (Auto) 17.0 H Lymph # (Auto) 0.8 L Mcdonough # (Auto) 1.1 H Eos # (Auto) 0.0 Baso # (Auto) 0.0 WBC Differential . Differential Comment Auto diff final PT 11.0 INR 1.1 Sodium 141 Potassium 4.4 Chloride 107 Carbon Dioxide 27.2 Anion Gap 7 BUN 13 Creatinine 1.37 H Estimated GFR 53 L Random Glucose 123 H Calcium 7.9 L Total Bilirubin 0.8 AST 24 ALT 47 Alkaline Phosphatase 60 Total Protein 6.6 D Albumin 3.4 Urine Color Urine Clarity Urine pH Ur Specific [place] Urine Protein Urine Glucose (UA) Urine Ketones Urine Occult Blood Urine Nitrate Urine Bilirubin Urine Urobilinogen Ur Leukocyte Esterase Urine WBC Urine Mucus Micro UA Comment Ur Microscopic Review Urine Culture Comments - Imaging Impressions Chest X-Ray 03/19/18 00:00 CONCLUSION: Negative for acute process Abdomen/Pelvis CT 03/19/18 12:40 CONCLUSION: 1. Probable incarcerated left inguinal hernia. Correlation suggested. 2. Moderate fatty replacement to the liver. - Procedures Open inguinal hernia repair with Dwaine patch Assessment and Plan - Plan 57 y/o male with a history of ckd presented to the ED with complaints of severe abdominal pain. Incarcerated hernia status post repair. He is stable continue postoperative care with wound care, incentive spirometry and pain management counselled regarding narcotics Leukocytosis likely reactive. No fever or evidence of infection. CKD stage III. Stable. Nonoliguric avoid nephrotoxins. DVT prophylaxis with SCD and early ambulation Discharge Planning: Discharge patient to home Condition on discharge: Improved Regular Diet as tolerated Ad Yadira activity no driving Rx written: CBC and BMP in 1 week Follow-up with primary care physician and general surgery
[2018-03-20 13:42] LABS: Creatine Kinase MB 3.1 ng/mL (0.5-3.6)
--- NOTE | 2018-03-20 14:09 | ECG ---
Date Performed: 03/19/2018 Time Performed: 21:59:59 PTAGE: 57 years EKG: SINUS BRADYCARDIA WITH FIRST DEGREE AV BLOCK ABNORMAL ECG Since the PREVIOUS TRACING , no significant change noted PREVIOUS TRACIN04/19/2016 11.30 DOCTOR: Callum Foreman Interpretating Date/Time 03/20/2018 14:05:01
== END 2018-03-20 15:03 | disposition home or self-care (01) ==
LOC: NEPC 11:43 → NEDA 16:00 → N07 17:08
PROVIDERS: ADMIT Internal Medicine; ATTEND Internal Medicine